=== PATIENT | female | born 1950 | race Two or more races ===

== ENCOUNTER 2019-06-19 06:34 | Day surgery (SDC) | payer MEDICARE, BC, OTHER ==
[2019-06-19] MEDS ORDERED: PROPOFOL INJ 200 MG/20 ML VIAL IV ONE ×2 (06:50→09:27)
[2019-06-19 07:56] LABS: ANION GAP 8 (5-19); BLOOD UREA NITROGEN 19 mg/dL (7-20); CALCIUM 10.2 mg/dL (8.4-10.2); CARBON DIOXIDE 26 mmol/L (22-30); CHLORIDE 106 mmol/L (98-107); GLUCOSE 130 mg/dL (75-110); POTASSIUM 4.4 mmol/L (3.6-5.0)
[2019-06-19] MEDS ORDERED: ONDANSETRON HCL INJ/PF 4 MG/2 ML SDV IV PRN (08:14)
--- NOTE | 2019-06-19 09:23 | Discharge Summary ---
Discharge Summary (SDC) - Discharge Final Diagnosis: reflux esophagitis Date of Surgery: 06/19/19 Discharge Date: 06/19/19 Condition: Stable Treatment or Instructions: Discharge home. Diet as tolerated. Activity: As tolerated. Follow-up with me in 7 to 10 days. Continue previous home medications. Discharge Diet: As Tolerated Respiratory Treatments at Home: Deep Breathing/Coughing, Incentive Spirometer Discharge Activity: Activity As Tolerated Home Care Assistance: None Needed Report the Following to Your Physician Immediately: Shortness of Breath, Nausea, Vomiting, Increase in Pain, Fever over 101 Degrees, Unusual Bleeding, Redness
--- NOTE | 2019-06-19 09:26 | Operative Report ---
Nonrecallable Operative Report DATE OF SURGERY: 06/19/19 PREOPERATIVE DIAGNOSIS: Reflux POSTOPERATIVE DIAGNOSIS: Reflux esophagitis, without signs of large hiatal hernia. OPERATION: EGD with biopsy SURGEON: SIMONE NOGUEIRA ANESTHESIA: LMAC TISSUE REMOVED OR ALTERED: 1. Antral biopsy to rule out H. pylori. 2. Biopsy of the distal esophagus. COMPLICATIONS: None apparent ESTIMATED BLOOD LOSS: Minimal PROCEDURE: Procedure in detail: After informed consent was obtained, the patient was brought to the operating room and laid in the left lateral decubitus position. The endoscope was passed down the oropharynx, down the esophagus, and into the stomach. The stomach was insufflated with air. The scope was pushed through the pylorus and into the first and second portions of the duodenum. The duodenum appeared normal throughout. The scope was pulled back into the antrum. There was no significant ulceration, petechiae, prominent gastric fold, or other sign of gastritis. Biopsy was taken in the antrum to rule out H. pylori infection. The scope was then retroflexed in the gastric body. No large hiatal hernias could be identified upon this maneuver. The scope was pulled up into the distal esophagus. There were signs of ulceration of the distal esophagus. These were mild. I am suspicious of mild reflux esophagitis. Biopsy was taken at the distal esophagus. The scope was then withdrawn up the remainder of the esophagus. The remainder of the esophagus was smooth in contour without masses, lesions, ulcerations, or other significant abnormality. The scope was removed from the oropharynx, and the procedure was concluded. All sponge, instrument, needle counts were correct. Condition: Stable.
[2019-06-19 10:53] VITALS: BP 158/80
--- NOTE | 2019-06-19 18:05 | EKG REPORT ---
SEVERITY:- ABNORMAL ECG - SINUS RHYTHM LEFT BUNDLE BRANCH BLOCK : Confirmed by: Brianda Lara 19-Jun-2019 18:04:30
== END 2019-06-19 10:20 | disposition home or self-care (01) ==
LOC: OROUT 06:34
PROVIDERS: ATTEND Surgery
DX: K21.0 Gastro-esophageal reflux disease with esophagitis (principal); K44.9 Diaphragmatic hernia without obstruction or gangrene; K29.50 Unspecified chronic gastritis without bleeding; B96.81 Helicobacter pylori [H. pylori] as the cause of diseases classified elsewhere; E78.00 Pure hypercholesterolemia, unspecified; I10 Essential (primary) hypertension; Z86.010 Personal history of colon polyps; R73.03 Prediabetes; Z79.899 Other long term (current) drug therapy; Z79.84 Long term (current) use of oral hypoglycemic drugs
CPT/HCPCS: 43239; 36415; 80048; 88342 ×2; 88305 ×2; 93005; 93010; 00731; J2704; 731